=== PATIENT | female | born 1940 | race Caucasian/White ===

== ENCOUNTER → 2018-06-02 16:30 | Outpatient (CLI) | payer MEDICARE, BC, SELFPAY ==
[2018-06-02 16:53] LABS: Abs Immature Grans 0.03 k/cumm (0.0-0.09); Absolute Basophil Count 0.02 k/cumm (0.0-0.2); Absolute Eosinophil Count 0.07 k/cumm (0.0-0.7); Absolute Monocyte Count 0.81 k/cumm (0.11-0.7); Absolute Neutrophil Count 5.88 k/cumm (1.2-6.7); Basophils % 0.2; Eosinophils % 0.7; HGB 13.3 g/dL (12.0-15.5); Immature Grans % 0.3; Lymphocytes % 28.4; Mean Corp. HGB Concentration 33.3 g/dL (32.0-36.0); Mean Corpuscular Hemoglobin 33.8 pg (27.0-33.0); Mean Corpuscular Volume 101.8 fL (80-95); Monocytes % 8.5; Neutrophils % 61.9; Platelet Count 276 x1000/uL (130-400); RBC 3.93 m/cumm (4.00-5.20); RBC Distribution Width 12.5 % (11.7-14.6); White Blood Cell Count 9.51 k/cumm (4.4-10.8)
[2018-06-02 17:37] LABS: ESR 12 MM/HR (0-30)
[2018-06-02 18:01] LABS: ALT 27 U/L (12-78); AST 29 U/L (15-37); Albumin 3.6 g/dL (3.4-5.0); Alkaline Phosphatase 58 U/L (46-116); Anion Gap 10.5 mmol/L (3-11); BUN 23 mg/dL (7-18); Bilirubin, Total 0.5 mg/dL (0.2-1.0); CO2 25.5 mmol/L (21.0-32.0); CREATININE 1.01 mg/dL (0.55-1.02); Calcium 8.6 mg/dL (8.5-10.1); Chloride 97 mmol/L (98-107); Estimated GFR 53.43 (mL/min/1.73m2); Glucose 104 mg/dL (70-100); Potassium 4.5 mmol/L (3.5-5.1); Sodium 133 mmol/L (136-145); Total Protein 7.1 g/dL (6.4-8.2)
== END ==
PROVIDERS: PCP Family Medicine; Visit Provider Internal Medicine
DX: D64.9 Anemia, unspecified (principal); E03.9 Hypothyroidism, unspecified; M06.9 Rheumatoid arthritis, unspecified
CPT/HCPCS: 36415; 80053; 85652; 85025

== ENCOUNTER 2019-05-15 09:50 | Outpatient (CLI) | payer MEDICARE, BC, SELFPAY ==
--- NOTE | 2019-05-15 09:56 | DI.RAD_ITS ---
SYMPTOM/DIAGNOSIS: RT DELTOID PAIN, M79.601 PAIN RIGHT ARM RIGHT SHOULDER: There is severe narrowing of the glenohumeral joint. There is acetabular spurring and somewhat deformity of the humeral head. Calcifications are seen above the humeral head which could represent tendon or joint space calcifications. There is spurring of the anterior and acromion. IMPRESSION: Severe degenerative changes of the right shoulder.
== END 2019-05-15 10:10 ==
PROVIDERS: PCP Family Medicine; Visit Provider Family Medicine
DX: M79.601 Pain in right arm (principal); M19.011 Primary osteoarthritis, right shoulder
CPT/HCPCS: 73030

== ENCOUNTER → 2019-05-26 10:08 | Outpatient (BNVA) | payer MEDICARE, BC, SELFPAY | PROVIDERS: PCP Family Medicine; Referring Provider Family Medicine; Visit Provider Orthopaedic Surgery | DX: M19.011 Primary osteoarthritis, right shoulder (principal); M25.511 Pain in right shoulder | CPT/HCPCS: 99202; 99203 ==

== ENCOUNTER 2019-06-01 08:09 | Day surgery (SDC) | payer MEDICARE, BC, SELFPAY ==
[2019-06-01 08:44] VITALS: BP 134/70; PULSE 71; RESP 20; TEMP 36.5; O2SAT 97
[2019-06-01] MEDS: methylPREDNISolone ACETATE 80 MG/ML VIAL (09:22)
--- NOTE | 2019-06-01 09:27 | PDOC.DSDIS_ITS ---
Discharge Plan Disposition Patient Disposition: HOME Condition: Good Discharge Details Reason For Visit: C-ARM GUIDED INJECTION R SHOULDER Attending Provider: Tarik Montalvo Primary Care Provider: Cleveland Perez Home Meds and New Rx's Prescriptions: Continued pravastatin 20 mg tablet 20 mg PO QHS RF: 0 Forteo 20 mcg/dose - 600 mcg/2.4 mL pen injector 20 mcg SC DAILY RF: 0 multivitamin 1 EACH tablet 1 ea PO DAILY RF: 0 levothyroxine 137 MCG tablet 137 mcg PO DAILY Qty: 90 RF: 4 triamcinolone acetonide 15 GM cream 1 nesha Topical BID PRNRF: 0 escitalopram oxalate 10 MG tablet 10 mg PO DAILY Qty: 90 RF: 0 Ocuvite with Lutein 1 EACH tablet 1 ea PO DAILY RF: 0 Fish Oil 1 EACH capsule 1 ea PO DAILY RF: 0 calcium carbonate-vitamin D3 1 EACH tablet 1,500 mg PO DAILY RF: 0 amlodipine 2.5 MG tablet 5 mg PO DAILY RF: 0 Probiotic 1 EACH capsule 1 ea PO DAILY RF: 0 prednisone 5 MG tablet 5 mg PO DAILY RF: 0 oxybutynin chloride [Ditropan XL] 5 MG tablet extended release 24hr 10 mg PO DAILY Qty: 180 RF: 3 ranitidine HCl 150 MG capsule 150 mg PO BID Qty: 180 RF: 3 Cimzia Starter Kit 400 mg/2 mL (200 mg/mL x 2) syringe kit 200 mg subcut every 2 wks RF: 0 diclofenac sodium [Pennsaid] 1.5 % drops 40 drp Topical QID PRNRF: 0 Discharge Instructions Additional Instructions: Rest your shoulder for the next 48 hours, then resume activities as tolerated. Apply ice bag to R shoulder 4 times/day for 1 hour each time over next 48 hours to decrease pain and swelling. Return to 's office in one month. Referrals: Tarik Montalvo MD [ [facility] STAFF PHYSICIAN] - (f/u in one month.) Activity:: Activity as Tolerated Diet:: As Tolerated Discharge Orders Discharge Orders: Discharge Order (Routine); Ordered 06/01/19 Ordered By: Tarik Montalvo DS: Diagnosis Discharge Diagnosis (1) Primary osteoarthritis, right shoulder: Status: Chronic
--- NOTE | 2019-06-01 09:42 | DI.RAD_ITS ---
SYMPTOM/DIAGNOSIS: RT SHOULDER ARTHRITIS C-ARM FLUOROSCOPY RIGHT SHOULDER: 06/01 Fluoroscopy Time: 6.7 sec 0.64 mGy C-arm fluoroscopy was utilized by Dr. Montalvo. Please see Dr. Montalvo's procedure note. Hard copy shows needle overlying the humeral head.
--- NOTE | 2019-06-01 15:44 | ROE_ITS ---
DATE OF PROCEDURE: June 01, 2019 PREOPERATIVE DIAGNOSIS: Osteoarthritis, right shoulder. POSTOPERATIVE DIAGNOSIS: Same. PROCEDURE: C-arm guided intraarticular injection of steroid, right shoulder. ANESTHESIA: Local. SURGEON: Tarik Montalvo M.D. INDICATIONS: This is a 78-year-old white female with longstanding osteoarthritis, along with rheumat oid arthritis, of her right shoulder. She does not desire any kind of arthroplasty for her shoulder. She has had shoulder injection in the past with good long lasting relief. She is requesting anothe r injection at this time. The risks and complications of the procedure have been explained to the dayron cruz in detail preoperatively. PROCEDURE: The patient was taken to the Operating Room in 06/01/19. She was placed supine on a radio lucent table. Ring forceps were then used to localize the shoulder joint with the help of a C-arm im age intensifier. I then outlined the ring forceps with a pen. I then prepped the skin with alcohol and placed an 18 gauge spinal needle in the desired marked position, straight down to the anterior sh oulder joint. I got return of fluid from the 18 gauge spinal needle, confirming I was in the shoulde r joint. Further confirmation was obtained with a single AP view of the shoulder with the C-arm. I then injected her shoulder with 15 cc's of 0.5% Marcaine with an epinephrine solution along with 80 mg of Depo-Medrol. I removed the needle, applied direct pressure to the puncture wound and then dres sed it with a Band-Aid. I passively put her shoulder through a range of motion for a couple of minut es. At this point she had functional active motion of her shoulder without pain. The patient was th en discharged to the Day Surgery Unit in good condition. The patient was discharged home from the Day Surgery Unit when fully recovered from her injection. S he was given instructions to take ibuprofen or Tylenol for pain. She was told to rest her shoulder f or 48 hours and then resume activities as tolerated. It is recommended that she apply ice to the ant erior shoulder four times a day for an hour each time over the next 48 hours. She should follow-up w [facility] in one month.
== END 2019-06-01 10:10 | disposition home or self-care (01) ==
PROVIDERS: PCP Family Medicine; Visit Provider Orthopaedic Surgery
PROC: (CPT 20610; principal; 2019-06-01 09:15)
DX: M25.511 Pain in right shoulder (principal); M19.011 Primary osteoarthritis, right shoulder; M06.9 Rheumatoid arthritis, unspecified
CPT/HCPCS: 20610; 77002; 73020; J1040

== ENCOUNTER → 2019-06-17 09:06 | Outpatient (BNVA) | payer MEDICARE, BC, SELFPAY | PROVIDERS: PCP Family Medicine; Referring Provider Family Medicine; Visit Provider Orthopaedic Surgery | DX: M19.011 Primary osteoarthritis, right shoulder (principal); Z98.890 Other specified postprocedural states | CPT/HCPCS: 99213 ==

== ENCOUNTER 2020-05-10 03:19 | Outpatient (CLI) | payer MEDICARE, BC, SELFPAY ==
[2020-05-10 10:42] LABS: HGB 13.8 g/dL (12.0-15.5); Mean Corp. HGB Concentration 32.9 g/dL (32.0-36.0); Mean Corpuscular Hemoglobin 32.2 pg (27.0-33.0); Mean Corpuscular Volume 97.9 fL (80-95); Mean Platelet Volume 9.9 fL (8.0-11.0); Platelet Count 266 x1000/uL (130-400); RBC 4.29 m/cumm (4.00-5.20); RBC Distribution Width 14.8 % (11.7-14.6); White Blood Cell Count 8.23 k/cumm (4.4-10.8)
[2020-05-10 11:37] LABS: ALT 24 U/L (14-59); AST 27 U/L (15-37); Albumin 3.4 g/dL (3.4-5.0); Alkaline Phosphatase 74 U/L (46-116); Anion Gap 7.4 mmol/L (3-11); BUN 19 mg/dL (7-18); Bilirubin, Total 0.6 mg/dL (0.2-1.0); C-Reactive Protein 0.26 mg/dL (0.0-0.3); CO2 29.6 mmol/L (21.0-32.0); CREATININE 0.97 mg/dL (0.55-1.02); Calcium 8.6 mg/dL (8.5-10.1); Chloride 99 mmol/L (98-107); Estimated GFR 55.69 (mL/min/1.73m2); Glucose 95 mg/dL (74-106); Potassium 4.5 mmol/L (3.5-5.1); Sodium 136 mmol/L (136-145); Total Protein 7.1 g/dL (6.4-8.2)
[2020-05-10 18:59] LABS: Vitamin D 25 Total 49.5 ng/ml (30-100)
== END 2020-05-10 03:39 ==
PROVIDERS: PCP Family Medicine; Visit Provider Internal Medicine Rheumatology
DX: Z79.52 Long term (current) use of systemic steroids (principal); M05.79 Rheumatoid arthritis with rheumatoid factor of multiple sites without organ or systems involvement; Z79.899 Other long term (current) drug therapy; M81.0 Age-related osteoporosis without current pathological fracture; E55.9 Vitamin D deficiency, unspecified
CPT/HCPCS: 36415; 80053; 82306; 85027; 86140

== ENCOUNTER 2021-05-15 02:00 | Outpatient (CLI) | payer MEDICARE, BC, SELFPAY ==
[2021-05-15 12:59] LABS: Vitamin D 25 Total 43.5 ng/mL (30-100)
[2021-05-15 13:01] LABS: Calcium 9.4 mg/dL (8.5-10.1)
[2021-05-17 15:31] LABS: Alkaline Phosphatase 101 U/L (35 - 104); Bone % 55.1 % (19.1-67.7); Intestine 17.8 IU/L (0.0-11.0); Intestine % 17.6 % (0.0-20.6); Liver % 20.7 % (27.8-76.3); Liver 2% 6.6 % (0.0-8.0)
== END 2021-05-15 02:01 | disposition home or self-care (01) ==
LOC: LOS 02:00
PROVIDERS: Internal Medicine Rheumatology; PCP Family Medicine; Visit Provider Family Medicine
DX: M81.0 Age-related osteoporosis without current pathological fracture (principal); E55.9 Vitamin D deficiency, unspecified; R94.5 Abnormal results of liver function studies
CPT/HCPCS: 36415; 82306; 84075; 84080; 82310

== ENCOUNTER 2023-07-04 10:37 | Emergency (ER) | payer MEDICARE, BC, SELFPAY ==
[2023-07-04] VITALS (24 sets, daily range): BP systolic 138–176; BP diastolic 53–86; PULSE 60–73; RESP 7–27; O2SAT 95
--- NOTE | 2023-07-04 10:30 | DI.CT_ITS ---
Exam(s) CT HEAD WO EXAM: CT HEAD WO CLINICAL HISTORY: Head injury, HENRIQUEZ, on Eliquis. TECHNIQUE: Imaging Protocol: Axial computed tomography images with coronal and sagittal reformatted images were created and reviewed COMPARISON: No exams were available for comparison FINDINGS: Ventricles and Extra axial spaces: Normal in size and morphology for the patient's age. Hemorrhage: None. Cerebral parenchyma: No evidence of acute infarct or mass. Midline shift: None. Brainstem/Cerebellum: Normal. Calvarium: Normal. Visualized Paranasal sinuses/Mastoids: Opacification of the left maxillary sinus. Mild ethmoid sinus mucosal thickening. Soft Tissues: Unremarkable. IMPRESSION: No acute intracranial process. RADIATION DOSE DELIVERED: 720.7mGy.cm Total DLP DATA REPOSITORY: All CT scans at this facility are submitted to the National Radiology Data Registry (NRDR) Dose Index Registry (DIR) with the [employer] (A[employer]). RADIATION OPTIMIZATION: All CT scans at this facility use at least one of these dose optimization te chniques: automated exposure control; mA and/or kV adjustment per patient size (includes targeted exa ms where dose is matched to clinical indication); or iterative reconstruction.
--- NOTE | 2023-07-04 10:48 | ED.GENADUL_ITS ---
Discharge Plan Disposition Patient Disposition: Home Condition: Stable Discharge Details Clinical Impression: Anemia, iron deficiency, Headache Primary Care Provider: Cleveland Perez ED Provider: Ofe Richardson [facility] Meds and New Rx's Prescriptions: New ferrous sulfate 325 mg (65 mg iron) tablet,delayed release (DR/EC) 325 mg PO DAILY Qty: 30 0RF Rx Instructions: Take one tablet by mouth daily Continued pravastatin 20 mg tablet 20 mg PO QHS Forteo 20 mcg/dose - 600 mcg/2.4 mL pen injector 20 mcg SC DAILY diltiazem HCl 120 mg capsule,extended release 24hr 120 mg PO DAILY famotidine [Pepcid] 40 mg tablet 40 mg PO BID metoprolol succinate 25 mg tablet extended release 24 hr 25 mg PO DAILY levothyroxine 112 mcg capsule 112 mcg PO DAILY amoxicillin-pot clavulanate 875-125 mg tablet 1 tab PO Q12H Qty: 14 0RF Eliquis 5 mg tablet 10 mg PO BID multivitamin 1 EACH tablet 1 ea PO DAILY triamcinolone acetonide 15 GM cream 1 nesha Topical BID PRN escitalopram oxalate 10 MG tablet 10 mg PO DAILY Qty: 90 Patient Comments: 06/02/18-now taking 5mg daily/pps Fish Oil 1 EACH capsule 1 ea PO DAILY Probiotic 1 EACH capsule 1 ea PO DAILY prednisone 5 MG tablet 5 mg PO DAILY Patient Comments: 06/02/18-now taking 5mg daily/pps Rx Instructions: RICHARD 10 MG AM, 5 MG PM. oxybutynin chloride [Ditropan XL] 5 MG tablet extended release 24hr 10 mg PO DAILY Qty: 180 Cimzia Starter Kit 400 mg/2 mL (200 mg/mL x 2) syringe kit 200 mg subcut every 2 wks Rx Instructions: RICHARD calcium carbonate-vitamin D3 600 mg(1,500mg) -400 unit tablet 2 tab PO DAILY Discharge Instructions Instructions: Anemia (ED), General Headache (ED) Additional Instructions: Your iron levels are low. Please take the iron supplement daily on an empty stomach. CT of your head shows no bleeding or anything emergent or acute. Your sodium levels were slightly low. Also your kidney functions are slightly elevated. Please discuss this with your primary care doctor and follow-up with them closely within the next 3 to 5 days to have repeat blood test completed. Follow up with primary care provider in 3-5 days. Return to ED sooner if any worsening or concerns. Increase oral fluids. Referrals: Cleveland Perez MD [Primary Care Provider] - 3 days Discharge Data Discharge Date/Time-TO BE ENTERED AT DEPARTURE: 07/04/23 13:23 Medical Decision Making 82-year-old female with a past medical history of atrial fibrillation, GERD, hypothyroidism, macular degeneration, palpitations osteopenia rheumatoid arthritis presents to the ER with a chief complaint of right-sided headache and right eye pressure status post falling out of her bed approximately 2 weeks ago hitting her head on the bedside table landing on the floor. She has a healing abrasions noted to her right lateral upper arm, she is on Eliquis 10 mg twice daily, she did take her dose this morning. She is alert and oriented x4 denies any neck pain denies any loss of consciousness. She has been recently treated for sinusitis infection with Augmentin. She does have some healing bruises noted to her left anterior barron. No other complaints or associated symptoms. Denies any blurry vision EOMs are intact. Denies any chest pain shortness of breath dizziness nausea. Pain worse with right lateral rotation, and now reports pressure to her right eye. CT head without contrast ordered, CBC CMP PT PTT ordered. Differential diagnosis includes but not limited to subdural bleed, generalized headache, concussion, sinus headache. CBC show she hemoglobin 9.5 hematocrit 29.4, platelets 436, absolute neutrophils 6.97, sodium 134 BUN 37 creatinine 1.5 GFR 35 previous BUN and creatinine were 19 and 0.97 which were approximately 3 years ago. Patient denies any dark stools, blood in her stools or abdominal pain. Patient does report history of anemia. We will give normal saline 500 cc bolus, iron TIBC and ferritin added onto patient's labs. Iron level is low, I do suspect iron deficiency anemia which may be attributing to her symptoms. Iron is 24 TIBC within normal limits at 366 transferring to 7% ferritin is 20. Patient given Ferrous sulfate 325 mg here in the department, and instructed to follow up closely with PCP for repeat labs and recheck. D iscussed strict return instructions to return if any worsening dizziness or lightheadedness. To return if any dark tarry stools or blood in her stools she verbalizes understanding. This text was generated using [email or web address], please disregard any oddities of phrase or misspellings. Medical Records Medical records reviewed: Yes I reviewed the patient's medical records. Imaging Data Radiologic Study: Imaging: CT Scan Radiologist's impression: EXAM: ? CT HEAD WO CLINICAL HISTORY: ? Head injury, HENRIQUEZ, on Eliquis. ? TECHNIQUE:? Imaging Protocol: Axial computed tomography images with coronal and sagittal reformatted images were created and reviewed COMPARISON:? No exams were available for comparison FINDINGS: Ventricles and Extra axial spaces: Normal in size and morphology for the patient's age. Hemorrhage: None. Cerebral parenchyma: No evidence of acute infarct or mass. Midline shift: None. Brainstem/Cerebellum: Normal. Calvarium: Normal. Visualized Paranasal sinuses/Mastoids: Opacification of the left maxillary sinus.? Mild ethmoid sinus mucosal thickening. Soft Tissues: Unremarkable. IMPRESSION: No acute intracranial process. Lab Data Lab results reviewed: Yes I reviewed the patient's lab results. Labs: Laboratory Tests Range/Units 07/04/23 07/04/23 07/04/23 11:11 11:11 11:11 WBC (4.4-10.8) 10^3/uL 9.73 RBC (3.93-5.22) 10^6/uL 3.07 L Hgb (11.2-15.7) g/dL 9.5 L Hct (36.0-46.0) % 29.4 L MCV (80-95) fL 96 H MCH (27.0-33.0) pg 30.9 MCHC (32.0-36.0) % 32.3 RDW (11.7-14.6) % 13.8 Plt Count (130-400) 10^3/uL 436 H MPV (8.0-11.0) fL 8.6 Immature Gran % 0.5 Neutrophils % 71.7 Lymphocytes % 17.2 Monocytes % 8.6 Eosinophils % 1.4 Basophils % 0.6 Nucleated RBC % (0.0-0.3) % 0.0 Absolute Neutrophils (1.2-6.7) 10^3/uL 6.97 H Absolute Lymphocytes (1.2-3.4) 10^3/uL 1.67 Absolute Monocytes (0.1-0.8) 10^3/uL 0.84 H Absolute Eosinophils (0.0-0.7) 10^3/uL 0.14 Absolute Basophils (0.0-0.2) 10^3/uL 0.06 PT (9.3-11.0) sec 11.2 H INR (0.9-1.1) 1.1 APTT (21.5-31.9) sec 26.1 Sodium (136-145) mmol/L 134 L Potassium (3.5-5.1) mmol/L 4.2 Chloride (98-107) mmol/L 100 Carbon Dioxide (21.0-32.0) mmol/L 29.4 Anion Gap (3-11) mmol/L 4.6 BUN (7-18) mg/dL 37 H Creatinine (0.55-1.02) mg/dL 1.5 H Est GFR (CKD-EPI 2020) (mL/min/1.73m2) 35.01 Glucose (74-106) mg/dL 90 Calcium (8.5-10.1) mg/dL 8.7 Magnesium (1.8-2.4) mg/dL 2.0 Iron (50-170) ug/dL TIBC (250-450) ug/dL Transferrin % Sat (15-50) % Ferritin (8-252) ng/mL Total Bilirubin (0.2-1.0) mg/dL 0.5 AST (15-37) U/L 31 ALT (14-59) U/L 28 Alkaline Phosphatase (46-116) U/L 74 Total Protein (6.4-8.2) g/dL 7.5 Albumin (3.4-5.0) g/dL 3.1 L Range/Units 07/04/23 07/04/23 11:11 11:11 WBC (4.4-10.8) 10^3/uL RBC (3.93-5.22) 10^6/uL Hgb (11.2-15.7) g/dL Hct (36.0-46.0) % MCV (80-95) fL MCH (27.0-33.0) pg MCHC (32.0-36.0) % RDW (11.7-14.6) % Plt Count (130-400) 10^3/uL MPV (8.0-11.0) fL Immature Gran % Neutrophils % Lymphocytes % Monocytes % Eosinophils % Basophils % Nucleated RBC % (0.0-0.3) % Absolute Neutrophils (1.2-6.7) 10^3/uL Absolute Lymphocytes (1.2-3.4) 10^3/uL Absolute Monocytes (0.1-0.8) 10^3/uL Absolute Eosinophils (0.0-0.7) 10^3/uL Absolute Basophils (0.0-0.2) 10^3/uL PT (9.3-11.0) sec INR (0.9-1.1) APTT (21.5-31.9) sec Sodium (136-145) mmol/L Potassium (3.5-5.1) mmol/L Chloride (98-107) mmol/L Carbon Dioxide (21.0-32.0) mmol/L Anion Gap (3-11) mmol/L BUN (7-18) mg/dL Creatinine (0.55-1.02) mg/dL Est GFR (CKD-EPI 2020) (mL/min/1.73m2) Glucose (74-106) mg/dL Calcium (8.5-10.1) mg/dL Magnesium (1.8-2.4) mg/dL Iron (50-170) ug/dL 24 L TIBC (250-450) ug/dL 366 Transferrin % Sat (15-50) % 7 L Ferritin (8-252) ng/mL 20 Total Bilirubin (0.2-1.0) mg/dL AST (15-37) U/L ALT (14-59) U/L Alkaline Phosphatase (46-116) U/L Total Protein (6.4-8.2) g/dL Albumin (3.4-5.0) g/dL HPI General Mode of arrival: ambulatory . Date/Time Provider Initiated Documentation: 07/04/23 10:38 . Limitations to Documentation: no limitations . Information obtained by: patient, RN notes reviewed and old records reviewed . HPI Narrative: 82-year-old female with a past medical history of atrial fibrillation, GERD, hypothyroidism, macular degeneration, palpitations osteopenia rheumatoid arthritis presents to the ER with a chief complaint of right-sided headache and right eye pressure status post falling out of her bed approximately 2 weeks ago hitting her head on the bedside table landing on the floor. She has a healing abrasions noted to her right lateral upper arm, she is on Eliquis 10 mg twice daily, she did take her dose this morning. She is alert and oriented x4 denies any neck pain denies any loss of consciousness. She has been recently treated for sinusitis infection with Augmentin. She does have some healing bruises noted to her left anterior barron. No other complaints or associated symptoms. Denies any blurry vision EOMs are intact. Denies any chest pain shortness of breath dizziness nausea. Related Data Home Medications Medication Instructions Recorded Confirmed escitalopram oxalate 10 mg tablet 10 mg PO DAILY #90 tab-caps 05/13/14 07/01/23 multivitamin 1 ea PO DAILY 05/13/14 07/01/23 omega-3 fatty acids-fish oil 340 1 ea PO DAILY 05/13/14 07/01/23 mg-1,000 mg capsule (Fish Oil) triamcinolone acetonide 0.1 % 1 nesha topical BID PRN 05/13/14 07/01/23 topical cream Lactobacillus acidophilus 10 1 ea PO DAILY 07/22/15 07/01/23 billion cell capsule (Probiotic) prednisone 5 mg tablet 5 mg PO DAILY 04/27/16 07/01/23 oxybutynin chloride 5 mg 10 mg PO DAILY #180 tab-caps 03/12/18 07/01/23 tablet,extended release 24 hr (Ditropan XL) certolizumab pegol 400 mg/2 mL 200 mg subcut every 2 wks 05/05/19 07/01/23 (200 mg/mL x2) subcutaneous syringe kit (Cimzia Starter Kit) pravastatin 20 mg tablet 20 mg PO QHS 05/05/19 07/01/23 teriparatide 20 mcg/dose (600 20 mcg subcut DAILY 05/05/19 07/01/23 mcg/2.4 mL) subcutaneous pen injector (Forteo) calcium carbonate 600 mg-vitamin 2 tab PO DAILY 07/07/21 07/01/23 D3 10 mcg (400 unit) tablet diltiazem HCl 120 mg 120 mg PO DAILY 07/07/21 07/01/23 capsule,extended release 24 hr famotidine 40 mg tablet (Pepcid) 40 mg PO BID 07/07/21 07/01/23 levothyroxine 112 mcg capsule 112 mcg PO DAILY 07/07/21 07/01/23 metoprolol succinate 25 mg 25 mg PO DAILY 07/07/21 07/01/23 tablet,extended release 24 hr apixaban 5 mg tablet (Eliquis) 10 mg PO BID 07/12/22 07/01/23 amoxicillin 875 mg-potassium 1 tab PO Q12H #14 tabs 07/01/23 07/01/23 clavulanate 125 mg tablet ferrous sulfate 325 mg (65 mg 325 mg PO DAILY anemia #30 tabs 07/04/23 iron) tablet,delayed release Previous Rx's Medication Instructions Recorded amoxicillin 875 mg-potassium 1 tab PO Q12H #14 tabs 07/01/23 clavulanate 125 mg tablet ferrous sulfate 325 mg (65 mg 325 mg PO DAILY anemia #30 tabs 07/04/23 iron) tablet,delayed release Allergies Allergy/AdvReac Type Severity Reaction Status Date / Time citalopram Allergy Intermediate blurred Unverified 07/01/23 15:33 vision codeine Allergy Intermediate eye Unverified 07/01/23 15:33 swelling morphine Allergy Intermediate drops BP Unverified 07/01/23 15:33 abatacept [From Orencia] AdvReac Severe BURNING Unverified 07/01/23 15:33 HANDS, CHEST cefuroxime AdvReac Severe abd pain Verified 07/01/23 15:33 denosumab [From Prolia] AdvReac Severe BACK SPASMS Unverified 07/01/23 15:33 doxycycline AdvReac Intermediate trouble Unverified 07/01/23 15:33 swallowing etodolac [From Lodine] AdvReac Intermediate eye Unverified 07/01/23 15:33 swelling sulfamethazine AdvReac Intermediate Unverified 07/01/23 15:33 General Stated Complaint: Trauma HOPE: 2 Review of Systems All systems reviewed & are unremarkable except as noted in HPI and below Constitutional Constitutional: Reports headache(s) and Denies weakness Eyes Eyes: Reports as per HPI and Denies loss of vision ENT Ears, Nose, Mouth, and Throat: Reports dizziness and Reports headache(s) Cardiovascular Cardiovascular: Denies syncope Musculoskeletal Musculoskeletal: Denies numbness Neurologic Neurologic: Denies confusion, Reports dizziness, Denies syncope, Reports headache(s), Denies lack of coordination, Denies localized weakness, Denies loss of vision, Denies numbness and Denies weakness Psychiatric Psychiatric: Denies confusion PFSH All Active Problems (Updated 07/04/23 @ 13:01 by Ofe Richardson NP) Anemia, iron deficiency (Acute) Headache (Acute) Urge incontinence of urine (Acute 07/12/14) Rheumatoid arthritis (Acute) 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 if 2ndary to forteo (10% get arthralgias) Primary osteoarthritis, right shoulder (Chronic) Intra-articular injection: 06/01/2019 Hx MRSA infection (Acute) pt reports 2011 Cyst of right breast (Acute) removed 1989 Surgical History Cholecystectomy Excision, Pilonidal Cyst Status post cholecystectomy Status post total knee replacement Social History Smoking/Tobacco Use Status: Former Tobacco Use Quit Date: 10/21/1964 Smoking risk assessment performed?: Yes Alcohol Intake: former Substance use type: does not use Housing: house Do you feel safe at home: Yes Do you feel safe in your relationship?: Yes Exam Narrative Exam Narrative: Constitutional: Alert and oriented x3. Appears stated age. Normal body habitus. Head: Normocephalic, no trauma. Eyes: Pupils PERRL, Red reflex noted, EOM's intact. Eyelids symmetrical without lesions, discharge, or swelling. ENT: Bilateral TM's WNL, External ear normal to inspection, no mastoid TTP, swelling, or erythema, Nasal turbinates WNL, no nasal discharge. Normal dentition, Posterior pharynx WNL, no exudate. Chest: RRR, Normal S1, S2, distal pulses intact. Resp: Lungs clear to auscultation bilaterally, no wheezes, rales, or rhonchi. Abdomen: Soft, non-distended, Normoactive bowel sounds all 4 quads. Musculoskeletal: Normal gait, 5/5 strength to all four extremities. Skin: No suspicious rashes or lesions. Capillary refill less than 2 sec. Neurologic: Cranial nerves II-XII intact. Alert and oriented x 3. Motor: No deficits noted. Sensory: Intact bilaterally all 4 extremities. No facial droop, EOMs intact no nystagmus Hematologic/Lymphatic: No ecchymosis, no lymphadenopathy. Course Vital Signs Vital signs: Vital Signs Pulse 73 07/04/23 10:39 Respiratory Rate 20 07/04/23 10:39 Blood Pressure 138/75 07/04/23 10:39 Pulse Oximetry 95 07/04/23 10:39 Pulse 73 07/04/23 10:39 Respiratory Rate 20 07/04/23 10:39 Blood Pressure 138/75 07/04/23 10:39 Blood Pressure Position Sitting 07/04/23 10:39 Pulse Oximetry 95 07/04/23 10:39 Oxygen Delivery Method Room Air 07/04/23 10:39 Oxygen Flow Rate 0 07/04/23 10:39 Pain Level 2 07/04/23 10:39
[2023-07-04 11:29] LABS: Abs Immature Grans 0.05 10^3/uL (0.0-0.06); Absolute Basophil Count 0.06 10^3/uL (0.0-0.2); Absolute Eosinophil Count 0.14 10^3/uL (0.0-0.7); Absolute Lymphocyte Count 1.67 10^3/uL (1.2-3.4); Absolute Monocyte Count 0.84 10^3/uL (0.1-0.8); Absolute Neutrophil Count 6.97 10^3/uL (1.2-6.7); Basophils % 0.6; Eosinophils % 1.4; HCT 29.4 % (36.0-46.0); HGB 9.5 g/dL (11.2-15.7); Immature Grans % 0.5; Lymphocytes % 17.2; MCH 30.9 pg (27.0-33.0); MCHC 32.3 % (32.0-36.0); MCV 96 fL (80-95); MPV 8.6 fL (8.0-11.0); Monocytes % 8.6; Neutrophils % 71.7; Platelet Count 436 10^3/uL (130-400); RBC 3.07 10^6/uL (3.93-5.22); RDW 13.8 % (11.7-14.6); RDW-SD 48.5 fL; WBC 9.73 10^3/uL (4.4-10.8)
[2023-07-04 11:42] LABS: INR 1.1 (0.9-1.1); PTT Activated 26.1 sec (21.5-31.9); Prothrombin Time 11.2 sec (9.3-11.0)
[2023-07-04 11:45] LABS: ALT 28 U/L (14-59); AST 31 U/L (15-37); Albumin 3.1 g/dL (3.4-5.0); Alkaline Phosphatase 74 U/L (46-116); Anion Gap 4.6 mmol/L (3-11); BUN 37 mg/dL (7-18); Bilirubin, Total 0.5 mg/dL (0.2-1.0); CO2 29.4 mmol/L (21.0-32.0); CREATININE 1.5 mg/dL (0.55-1.02); Calcium 8.7 mg/dL (8.5-10.1); Chloride 100 mmol/L (98-107); Estimated GFR 35.01 (mL/min/1.73m2); Glucose 90 mg/dL (74-106); Potassium 4.2 mmol/L (3.5-5.1); Sodium 134 mmol/L (136-145); Total Protein 7.5 g/dL (6.4-8.2)
[2023-07-04] MEDS: Normal Saline 500 ML IV (12:23)
[2023-07-04 12:44] LABS: Iron 24 ug/dL (50-170); Total Iron Binding Capacity 366 ug/dL (250-450); Transferrin Sat 7 % (15-50)
[2023-07-04 12:58] LABS: Ferritin 20 ng/mL (8-252)
[2023-07-04] MEDS: Ferrous Sulfate 325 MG TAB PO (13:14)
== END 2023-07-04 13:23 | disposition home or self-care (01) ==
PROVIDERS: Emergency Provider Registered Nurse Emergency; PCP Family Medicine
DX: R51.9 Headache, unspecified (principal); D50.9 Iron deficiency anemia, unspecified; S09.90XA Unspecified injury of head, initial encounter; I48.91 Unspecified atrial fibrillation; E03.9 Hypothyroidism, unspecified; M06.9 Rheumatoid arthritis, unspecified; Z79.01 Long term (current) use of anticoagulants; W06.XXXA Fall from bed, initial encounter; Y93.89 Activity, other specified; Y92.013 Bedroom of single-family (private) house as the place of occurrence of the external cause; Y99.9 Unspecified external cause status
CPT/HCPCS: 80053; 96360; 99284; 70450; 82728; 83540; 83550; 83735; 85025; 85610; 85730